=== PATIENT | male | born 1990 | race African-American/Black ===

== ENCOUNTER → 2017-02-18 | Outpatient (CLI) | payer OTHER ==
[2015-07-20 00:44] VITALS: BP 186/104
== END | disposition home or self-care (01) ==
LOC: PF 07:50
PROVIDERS: ATTEND Neuromusculoskeletal Medicine, Sports Medicine
DX: J44.9 Chronic obstructive pulmonary disease, unspecified (principal)
CPT/HCPCS: 94060